=== PATIENT | female | born 1985 ===

== ENCOUNTER 2017-08-15 02:36 | Outpatient (CLI) | payer MEDICAID | END 2017-08-15 23:59 | disposition home or self-care (01) | LOC: DIABETIC 02:36 | PROVIDERS: ATTEND Surgery | DX: E66.01 Morbid (severe) obesity due to excess calories (principal); E11.9 Type 2 diabetes mellitus without complications | CPT/HCPCS: 97802 ==

== ENCOUNTER 2017-09-10 03:47 | Outpatient (CLI) | payer MEDICAID | END 2017-09-10 23:59 | disposition home or self-care (01) | LOC: DIABETIC 03:47 | PROVIDERS: ATTEND Surgery | DX: E66.01 Morbid (severe) obesity due to excess calories (principal); E11.9 Type 2 diabetes mellitus without complications | CPT/HCPCS: 97802 ==

== ENCOUNTER 2017-10-17 04:52 | Outpatient (CLI) | payer MEDICAID | END 2017-10-17 23:59 | disposition home or self-care (01) | LOC: DIABETIC 04:52 | PROVIDERS: ATTEND Surgery | DX: E66.01 Morbid (severe) obesity due to excess calories (principal); E11.9 Type 2 diabetes mellitus without complications | CPT/HCPCS: 97802 ==

== ENCOUNTER 2017-11-17 02:56 | Outpatient (CLI) | payer MEDICAID | END 2017-11-17 23:59 | disposition home or self-care (01) | LOC: DIABETIC 02:56 | PROVIDERS: ATTEND Surgery | DX: E66.01 Morbid (severe) obesity due to excess calories (principal); E11.9 Type 2 diabetes mellitus without complications | CPT/HCPCS: 97802 ==

== ENCOUNTER 2017-12-09 00:18 | Outpatient (CLI) | payer MEDICAID | END 2017-12-09 23:59 | disposition home or self-care (01) | LOC: DIABETIC 00:18 | PROVIDERS: ATTEND Surgery | DX: E11.9 Type 2 diabetes mellitus without complications (principal); E66.01 Morbid (severe) obesity due to excess calories; Z71.3 Dietary counseling and surveillance | CPT/HCPCS: 97802 ==

== ENCOUNTER 2018-04-30 06:26 | Outpatient (CLI) | payer MEDICAID | END 2018-04-30 23:59 | disposition home or self-care (01) | LOC: DIABETIC 06:26 | PROVIDERS: ATTEND Surgery | DX: E66.01 Morbid (severe) obesity due to excess calories (principal) | CPT/HCPCS: 97802 ==

== ENCOUNTER 2019-01-11 02:26 | Outpatient (CLI) | payer MEDICAID | END 2019-01-11 23:59 | disposition home or self-care (01) | LOC: DIABETIC 02:26 | PROVIDERS: ATTEND Surgery | DX: E66.01 Morbid (severe) obesity due to excess calories (principal) | CPT/HCPCS: 97803 ==

== ENCOUNTER 2019-07-13 00:36 | Outpatient (CLI) | payer MEDICAID | END 2019-07-13 23:59 | disposition home or self-care (01) | LOC: DIABETIC 00:36 | PROVIDERS: ATTEND Surgery | DX: E66.01 Morbid (severe) obesity due to excess calories (principal) | CPT/HCPCS: 97803 ==